=== PATIENT | female | born 1975 | race Caucasian/White ===

== ENCOUNTER 2024-04-19 11:53 | Outpatient (CLI) | payer OTHER, SELFPAY ==
[2024-04-19 12:16] LABS: Basophils Absolute Auto 0.1 K/mm3 (0.0-0.1); Eosinophils Absolute Auto 0.1 K/mm3 (0-0.3); Eosinophils Percent Auto 1.8 % (0-4.4); Hemoglobin 13.5 g/dL (12.0-15.0); Immature Granulocyte Absolute 0.03 K/mm3 (0.00-0.031); Immature Granulocyte Percent A 0.6 % (0-0.5); Lymphocytes Absolute Auto 1.64 K/mm3 (0.9-3.2); Lymphocytes Percent Auto 32.9 % (18.3-44.2); Mean Corpuscular HGB Conc 32.1 g/dl (32-36); Mean Corpuscular Hemoglobin 30.1 pg (26-34); Mean Corpuscular Volume 93.5 fl (80-100); Mean Platelet Volume 9.2 fl (7.4-10.4); Monocytes Absolute Auto 0.4 K/mm3 (0.1-0.6); Neutrophils Absolute Auto 2.8 K/mm3 (1.3-6.7); Neutrophils Percent Auto 55.7 % (45.5-73.1); Platelet Count Result 241 k/mm3 (150-375); Red Blood Count 4.49 M/mm3 (4.2-5.4); Red Cell Distribution Width 13.2 % (11.5-14.5)
[2024-04-19 12:44] LABS: Iron 97 ug/dL (37-170)
[2024-04-19 12:54] LABS: Percent Iron Saturation 33 % (20-50)
[2024-04-21 03:18] LABS: FSH 3.5 mIU/mL; LH 1.2 mIU/mL; Progesterone 1.2 ng/mL
[2024-04-22 23:04] LABS: Testosterone Free 6.4 pg/mL (0.1-6.4); Testosterone Total 75 ng/dL (2-45)
[2024-04-27 19:59] LABS: Estradiol, Ultrasensitive 64 pg/mL
== END 2024-04-19 11:54 | disposition home or self-care (01) ==
PROVIDERS: PCP Emergency Medicine; Visit Provider Emergency Medicine
DX: Z00.01 Encounter for general adult medical examination with abnormal findings (principal); E61.1 Iron deficiency; N92.0 Excessive and frequent menstruation with regular cycle; R53.83 Other fatigue
CPT/HCPCS: 36415; 82670; 82728; 83001; 83002; 83540; 83550; 84144; 84402; 84403; 84443; 85025